=== PATIENT | male | born 2000 | race African-American/Black ===

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

== ENCOUNTER 2022-09-10 10:13 | Emergency (ER) | payer OTHER ==
[2022-09-10] MEDS ORDERED: Ketorolac Tromethamine 30 MG/ML VIAL ONE (10:59)
[2022-09-10] MEDS ORDERED: Diazepam 5 MG TAB ONE (10:59)
[2022-09-10] MEDS ORDERED: Ondansetron ODT 4 MG TAB ONE (11:31)
== END 2022-09-10 11:50 | disposition home or self-care (01) ==
LOC: CSHERS 10:13
DX: S16.1XXA Strain of muscle, fascia and tendon at neck level, initial encounter (principal); M54.6 Pain in thoracic spine; F17.210 Nicotine dependence, cigarettes, uncomplicated; V89.2XXA Person injured in unspecified motor-vehicle accident, traffic, initial encounter
CPT/HCPCS: 70450; 72072; 72100; 72125; 96372; J1885; Q0162

== ENCOUNTER 2023-05-26 16:21 | Emergency (ER) | payer OTHER | END 2023-05-26 18:00 | disposition home or self-care (01) | LOC: CSHERS 16:21 | DX: J45.901 Unspecified asthma with (acute) exacerbation (principal); F17.290 Nicotine dependence, other tobacco product, uncomplicated | CPT/HCPCS: 71045 ==

== ENCOUNTER 2023-11-25 10:34 | Emergency (ER) | payer BC, OTHER ==
[2023-11-25 11:47] LABS: SARS-CoV-2 NAA Rapid Test Not Detected (NotDetected)
[2023-11-25] MEDS ORDERED: Ipratropium/Albuterol 3 ML NEB ONE ×2 (11:52→13:01)
[2023-11-25] MEDS ORDERED: predniSONE 20 MG TAB ONE (12:12)
== END 2023-11-25 13:56 | disposition home or self-care (01) ==
LOC: CSHERS 10:34
DX: B34.9 Viral infection, unspecified (principal); J45.901 Unspecified asthma with (acute) exacerbation; F17.210 Nicotine dependence, cigarettes, uncomplicated
CPT/HCPCS: 71045; 94640; 94760; J7512; J7620